=== PATIENT | male | born 1980 | race Caucasian/White ===

== ENCOUNTER 2017-07-20 11:58 | Emergency (ER) | payer SELFPAY, OTHER | END 2017-07-20 13:00 | disposition left against medical advice (07) | LOC: FTE 11:58 | DX: Z53.21 Procedure and treatment not carried out due to patient leaving prior to being seen by health care provider (principal) ==

== ENCOUNTER 2017-12-08 20:56 | Emergency (ER) | payer OTHER ==
[2017-12-09 00:43] LABS: MONOTEST Negative (NEG)
== END 2017-12-09 01:14 | disposition home or self-care (01) ==
LOC: FTE 12-09 01:14
DX: J02.9 Acute pharyngitis, unspecified (principal); F17.210 Nicotine dependence, cigarettes, uncomplicated
CPT/HCPCS: 86308; 87880; 99284

== ENCOUNTER 2018-04-12 23:34 | Emergency (ER) | payer OTHER | END 2018-04-13 03:06 | disposition home or self-care (01) | LOC: FTE 23:34 | DX: J02.9 Acute pharyngitis, unspecified (principal); F17.210 Nicotine dependence, cigarettes, uncomplicated; Z76.0 Encounter for issue of repeat prescription | CPT/HCPCS: 99283; Z7502 ==

== ENCOUNTER 2018-04-26 13:30 | Emergency (ER) | payer OTHER ==
[2018-04-26] MEDS: SOD CHLORIDE 0.9% 1,000 ML IV (14:00)
[2018-04-26] MEDS: ONDANSETRON 4 MG INJ IV (14:00)
[2018-04-26] MEDS: LORAZEPAM 2 MG INJ IV (14:00)
== END 2018-04-26 15:14 | disposition home or self-care (01) ==
LOC: FTE 13:30
DX: R51 Headache (principal); F17.210 Nicotine dependence, cigarettes, uncomplicated
CPT/HCPCS: 96361; 96374; 96375; 99284-25

== ENCOUNTER 2018-05-11 22:44 | Emergency (ER) | payer OTHER ==
[2018-05-11] MEDS: SOD CHLORIDE 0.9% 1,000 ML IV (23:27)
[2018-05-11 23:28] LABS: ADD MAN DIFF? NO
[2018-05-11 23:30] LABS: WHITE BLOOD COUNT 10.9 10^3/ul (4.8-10.8)
[2018-05-11 23:30] LABS: BASOPHILS % 0.4 % (0.0-2.0); EOSINOPHILS # 0.1 10^3/ul (0.0-0.5); EOSINOPHILS % 1.2 % (0.0-7.0); HEMATOCRIT 43.6 % (42.0-52.0); HEMOGLOBIN 14.8 g/dl (14.0-18.0); LYMPHOCYTES % 27.7 % (15.0-51.0); MEAN CORPUSCULAR HGB CONC 33.9 g/dl (32.0-37.0); MEAN CORPUSCULAR VOLUME 88.3 fl (82.0-101.0); MEAN PLATELET VOLUME 9.9 fl (7.4-10.4); MONOCYTE # 0.7 10^3/ul (0.3-0.9); MONOCYTES % 6.4 % (0.0-11.0); NEUTROPHILS % 63.9 % (39.0-77.0); PLATELET COUNT 268 10^3/UL (140-415); RED BLOOD COUNT 4.94 10^6/ul (4.70-6.10); RED CELL DISTRIBUTION WIDTH 12.7 % (11.5-14.5)
[2018-05-11 23:32] LABS: ADD UMIC NO; UR ASCORBIC ACID NEGATIVE (NEGATIVE); UR BILIRUBIN (Dip) NEGATIVE (NEGATIVE); UR BLOOD (Dip) NEGATIVE (NEGATIVE); UR CLARITY CLEAR (CLEAR); UR COLOR STRAW (YELLOW); UR GLUCOSE (Dip) NEGATIVE (NEGATIVE); UR KETONES (Dip) TRACE mg/dL (NEGATIVE); UR LEUKOCYTE ESTERASE (Dip) NEGATIVE Leu/ul (NEGATIVE); UR NITRITE (Dip) NEGATIVE (NEGATIVE); UR SPECIFIC GRAVITY (Dip) 1.005 (1.003-1.030); UR TOTAL PROTEIN (Dip) NEGATIVE (NEGATIVE); UR UROBILINOGEN (Dip) NEGATIVE (NEGATIVE)
[2018-05-11 23:47] LABS: ALANINE AMINOTRANSFERASE 32 IU/L (13-69); ALBUMIN 4.6 g/dl (3.3-4.9); ALBUMIN/GLOBULIN RATIO 1.84; ALKALINE PHOSPHATASE 63 IU/L (42-121); ANION GAP 13 (5-13); CALCIUM 9.3 mg/dl (8.4-10.2); CARBON DIOXIDE 24 mmol/L (21-31); CHLORIDE 103 mmol/L (97-110); CREATININE 0.64 mg/dl (0.61-1.24); Estimated GFR > 60 mL/min (>60); GLUCOSE 113 mg/dl (70-220); LIPASE 60 U/L (23-300); POTASSIUM 4.2 mmol/L (3.5-5.1); SODIUM 140 mmol/L (135-144); TOTAL PROTEIN 7.1 g/dl (6.1-8.1)
[2018-05-11 23:48] LABS: ASPARTATE AMINO TRANSFERASE 19 IU/L (15-46); BLOOD UREA NITROGEN 10 mg/dl (7-20)
[2018-05-11 23:49] LABS: BILIRUBIN,INDIRECT 0.3 mg/dl (0-1.1); BILIRUBIN,TOTAL 0.3 mg/dl (0.2-1.3)
== END 2018-05-12 00:20 | disposition home or self-care (01) ==
LOC: E/R 05-12 00:20
DX: F10.10 Alcohol abuse, uncomplicated (principal); F17.210 Nicotine dependence, cigarettes, uncomplicated; F12.90 Cannabis use, unspecified, uncomplicated; F19.10 Other psychoactive substance abuse, uncomplicated
CPT/HCPCS: 36415; 80053; 81003; 83690; 85025; 99284-25

== ENCOUNTER 2018-06-23 12:00 | Emergency (ER) | payer OTHER ==
[2018-06-23] MEDS: SOD CHLORIDE 0.9% 1,000 ML IV (13:01)
[2018-06-23] MEDS: FLUOXETINE 20 MG CAP PO (13:05)
[2018-06-23] MEDS: LORAZEPAM 1 MG TAB PO (13:05)
== END 2018-06-23 13:00 | disposition home or self-care (01) ==
LOC: E/R 12:00
DX: F10.230 Alcohol dependence with withdrawal, uncomplicated (principal); I10 Essential (primary) hypertension; Z87.891 Personal history of nicotine dependence
CPT/HCPCS: 36415; 93005; 99283-25

== ENCOUNTER 2018-07-12 20:48 | Emergency (ER) | payer SELFPAY, OTHER | END 2018-07-12 20:55 | disposition left against medical advice (07) | LOC: E/R 20:55 | DX: Z53.21 Procedure and treatment not carried out due to patient leaving prior to being seen by health care provider (principal) ==